=== PATIENT | male | born 1980 | race African-American/Black ===

== ENCOUNTER 2023-08-22 14:28 | Outpatient (REF) | payer OTHER, SELFPAY ==
[2023-08-22 18:03] LABS: MANUAL DIFF FLAG NO
[2023-08-22 18:08] LABS: Basophils Percent Auto 0.4 % (0-2); Eosinophils Absolute Auto 0.1 X10*3/uL (0.0-0.4); Eosinophils Percent Auto 2.4 % (0-4); Hematocrit 38.7 % (42.0-52.0); Imm Gran Abs Auto 0.02 X10*3/uL (0.00-0.03); Imm Gran Pct Auto 0.4 % (0.0-0.4); Lymphocytes Percent Auto 42.9 % (20-40); Mean Corpuscular HGB Conc 33.6 g/dl (31.0-36.0); Mean Corpuscular Hemoglobin 29.5 pg (27.0-33.0); Mean Corpuscular Volume 87.8 fL (80.0-98.0); Mean Platelet Volume 10.9 fL (9.4-12.4); Monocytes Absolute Auto 0.5 X10*3/uL (0.1-1.2); Monocytes Percent Auto 11.2 % (2-11); Neutrophils Percent Auto 42.7 % (45-73); Platelet Count 286 X10*3/uL (160-400); Red Blood Count 4.41 X10*6/uL (4.60-5.80); Red Cell Distribution Width 12.5 % (11.0-16.0); White Blood Count 4.6 X10*3/uL (4.8-10.8)
[2023-08-22 18:20] LABS: Creatinine Urine 211.78 mg/dL; Microalbum/Creatinine Ratio Ur 5.1 ug/mg cr (<30)
[2023-08-22 18:23] LABS: Alanine Aminotransferase 31 U/L (0-40); Alkaline Phosphatase 93 U/L (39-117); Anion Gap 13 (12-20); Aspartate Amino Transferase 29 U/L (5-37); Bilirubin Total 0.3 mg/dL (0.0-1.0); Blood Urea Nitrogen 19 mg/dL (9-16); Calcium 9.1 mg/dL (8.4-10.2); Carbon Dioxide 28 mmol/L (22-29); Chloride 100 mmol/L (96-108); Cholesterol 194 mg/dL (<200); Estimated Glomerular Filt Rate > 60; Glucose Random 139 mg/dL (60-115); HDL Cholesterol 42 mg/dL (>40); LDL Cholesterol Calculated 138 mg/dL (<100); Potassium 3.6 mmol/L (3.3-5.1); Sodium 137 mmol/L (135-145); Total Protein 7.5 g/dL (6.5-8.0); Triglycerides 71 mg/dL (<150)
[2023-08-22 18:40] LABS: TSH reflex Free T4 6.93 uIU/mL (0.32-4.0)
[2023-08-22 19:22] LABS: Free T4 (Free Thyroxine) 0.85 ng/dL (0.71-1.85)
== END 2023-08-22 14:29 | disposition home or self-care (01) ==
LOC: HO.CHCLDS 14:28
PROVIDERS: Visit Provider Internal Medicine
DX: E11.9 Type 2 diabetes mellitus without complications (principal)
CPT/HCPCS: 36415; 80053; 80061; 82043; 82570; 84439; 84443; 85025

== ENCOUNTER 2024-04-16 10:17 | Outpatient (REF) | payer OTHER, SELFPAY ==
[2024-04-16 14:29] LABS: MANUAL DIFF FLAG NO
[2024-04-16 14:36] LABS: Basophils Percent Auto 0.5 % (0-2); Hematocrit 41.9 % (42.0-52.0); Hemoglobin 14.2 g/dl (14.0-18.0); Imm Gran Abs Auto 0.01 X10*3/uL (0.00-0.03); Imm Gran Pct Auto 0.3 % (0.0-0.4); Lymphocytes Absolute Auto 1.7 X10*3/uL (1.2-4.9); Lymphocytes Percent Auto 42.8 % (20-40); Mean Corpuscular HGB Conc 33.9 g/dl (31.0-36.0); Mean Corpuscular Hemoglobin 28.5 pg (27.0-33.0); Mean Platelet Volume 11.7 fL (9.4-12.4); Monocytes Absolute Auto 0.4 X10*3/uL (0.1-1.2); Neutrophils Absolute Auto 1.8 x10*3/uL (2.0-8.3); Neutrophils Percent Auto 46.4 % (45-73); Platelet Count 303 X10*3/uL (160-400); Red Blood Count 4.99 X10*6/uL (4.60-5.80); Red Cell Distribution Width 12.7 % (11.0-16.0); White Blood Count 3.9 X10*3/uL (4.8-10.8)
[2024-04-16 14:57] LABS: Alanine Aminotransferase 25 U/L (0-40); Albumin Level 4.3 g/dL (3.5-5.0); Alkaline Phosphatase 143 U/L (39-117); Anion Gap 14 (12-20); Aspartate Amino Transferase 14 U/L (5-37); Bilirubin Total 0.3 mg/dL (0.0-1.0); Blood Urea Nitrogen 14 mg/dL (9-16); Calcium 9.9 mg/dL (8.4-10.2); Carbon Dioxide 27 mmol/L (22-29); Chloride 101 mmol/L (96-108); Cholesterol 217 mg/dL (<200); Estimated Glomerular Filt Rate > 60; Glucose Random 340 mg/dL (60-115); HDL Cholesterol 35 mg/dL (>40); LDL Cholesterol Calculated 155 mg/dL (<100); Sodium 138 mmol/L (135-145); Total Protein 7.9 g/dL (6.5-8.0); Triglycerides 139 mg/dL (<150)
[2024-04-16 15:08] LABS: Creatinine Urine 220.13 mg/dL; Microalbum/Creatinine Ratio Ur 37.7 ug/mg cr (<30)
[2024-04-16 15:12] LABS: TSH reflex Free T4 3.85 uIU/mL (0.32-4.0)
== END 2024-04-16 10:18 | disposition home or self-care (01) ==
LOC: HO.CHCLDS 10:17
PROVIDERS: Visit Provider Internal Medicine
DX: E11.65 Type 2 diabetes mellitus with hyperglycemia (principal)
CPT/HCPCS: 36415; 80053; 80061; 82043; 82570; 84443; 85025

== ENCOUNTER 2024-12-11 09:03 | Outpatient (REF) | payer MEDICAID, SELFPAY ==
--- OUTSIDE RECORDS SUMMARY | 2024-12-11 09:44 | XMS_ITS | Encounter Summary ---
Author Organization [employer] Address [address] [place] [address] [address] [address] Care Team Providers Care Diesel Tractor Engine Mechanic Name Role Phone Rehan Chandler MD Primary Care Prov ider Chayito Santo PharmD Unavailable Encounter Details Date Type Department Care Team (Late st Contact Info) Description 03/26/2023 Orders Only [facility] CHC MED & PEDS [address] [place] [address] Romana Urbano MD [address] [place] [address] Social History Tobacco Use Types Packs/Day Years Used Date Smoking Tobacco: Never Assessed Sex and Gender Information Value Date Recorded Sex Assigned at Male 07/09/2022 10:21 AM EDT Legal Sex Male 10:21 AM EDT Gender Identity Male 07/09/2022 10:21 AM EDT Sexual Orientation Straight 07/09/2022 10 :21 AM EDT documented as of this encounter Plan of Treatment Upcoming Encounters Date Type Department Care Team (Late st Contact Info) Description 12/14/2024 9:00 AM EDT Office Visit [facility] OPTOMETRY [address] [place], [place] [id number] Alia Johnson, OD [address] [place] [address] 01/05/2025 8:30 AM EDT Telemedicine [facility] CHC MED & PEDS [address] [place] [address] Rehan Chandler MD [address] [place] [address] 02/15/2025 9:00 AM EDT Medication Management [facility] MED & PEDS [address] [place] [address] Chayito Santo PharmD [address] [place] [address] documented as of this encounter Visit Diagnoses Not on filedocumented in this encounter Care Teams Diesel Tractor Engine Mechanic Relationship Specialty Start Date End Date Rehan Chandler MD [address] [place] [address] PCP - General Internal Medicine 02/02/20 Chayito Santo, PharmD [address] [place] [address] Pharmacist Internal Medicine 11/04/24 documented as of this encounter
--- OUTSIDE RECORDS SUMMARY | 2024-12-11 09:44 | XMS_ITS | Encounter Summary ---
Author Organization [employer] Address [address] [place] [id number] Care Team Providers Care Bulb Planter Name Role Phone Rehan Chandler MD Primary Care Prov ider Chayito Santo PharmD Unavailable [phone] Reason for Visit * Reason Onset Date Comments Referral 03/24/2024 Encounter Details Date Type Department Care Team ([facility] st Contact Info) Description 03/24/2024 Telephone [facility] CHC MED & PEDS [address] [place] [address] Rehan Chandler MD [address] [place] [address] Referral Social History Tobacco Use Types Packs/Day Years Used Date Smoking Tobacco: Never Smokeless Tobacco: Never Alcohol Use Standard Drinks/Week Comments Not Currently 0 (1 standard drink = 0.6 oz pur e alcohol) Depression Answer Date Recorded Patient Health Questionnaire-9 Score 0 01/27/2024 Patient Health Questionnaire-9 Score 0 01/27/2024 Last PHQ-9: Questionnaire Data Not on file 0 01/27/2024 Housing Stability Answer Date Recorded What is your housing situation today? I do not have housing (Staying with others, in a hotel, in a senior care, living outside on the street, on a beach, in a car, or in a park 07/24/[address] you li ve. Do you have problems with any of the following? None of the above 07/24/2023 Food Insecurity Answer Date Recorded Within the past 12 months, y ou worried that your food would run out before you got money to buy more: Never True 07/24/2023 Within the past 12 months,th e food you bought just didn't last and you didn't have enough money to get more: Never True Transportation Answer Date Recorded In the past 12 months, has l ack of transportation kept you from medical appts, meetings, work or from getting things needed for daily living? No 07/24/2023 Utilities Answer Date Recorded In the past 12 months, has t he electric, gas, oil or water company threatened to shut off services in your home? Yes 07/24/2023 Depression Answer Date Recorded Patient Health Questionnaire-2 Score 0 01/27/2024 Sex and Gender Information Value Date Recorded Sex Assigned at Male 07/09/2022 10:21 AM EDT Legal Sex Male 10:21 AM EDT Gender Identity Male 07/09/2022 10:21 AM EDT Sexual Orientation Straight 07/09/2022 10 :21 AM EDT documented as of this encounter Miscellaneous Notes * Telephone Encounter - Daniella Caban - 03/24/2024 1:29 PM EDT Tc from pt requesting to get a podiatry referral. documented in this encounter Plan of Treatment Upcoming Encounters Date Type Department Care Team (Late st Contact Info) Description 12/14/2024 9:00 AM EDT Office Visit [facility] OPTOMETRY [address] [place] [address] Alia Johnson, OD [address] [facility] [place] [address] 01/05/2025 8:30 AM EDT Telemedicine [facility] CHC MED & PEDS [address] [place] [address] Rehan Chandler MD [address] [place] [address] 02/15/2025 9:00 AM EDT Medication Management [facility] MED & PEDS [address] [place] [address] Chayito Santo, CherylD [address] [place] [address] documented as of this encounter Visit Diagnoses Not on filedocumented in this encounter Additional Health Concerns Assessment Noted Time PHQ-9 Depression Total Score: 0 01/27/20 24 1:22 PM EDT documented as of this encounter Care Teams Bulb Planter Relationship Specialty Start Date End Date Rehan Chandler MD [address] [place] [address] PCP - General Internal Medicine 02/02/20 Chayito Santo, Dago [address] [place] [address] Pharmacist Internal Medicine 11/04/24 documented as of this encounter
--- OUTSIDE RECORDS SUMMARY | 2024-12-11 09:44 | XMS_ITS | Encounter Summary ---
Author Organization [email or web address] Address [address] [facility] [address] [place] [address] Care Team Providers Care Top Screw Name Role Phone Rehan Chandler MD Primary Care Prov ider Chayito Santo PharmD Unavailable [phone] Encounter Details Date Type Department Care Team (Latest Contact Info) Description 12/09/2024 Travel Social History Tobacco Use Types Packs/Day Years Used Date Smoking Tobacco: Never Smokeless Tobacco: Never Alcohol Use Standard Drinks/Week Comments Not Currently 0 (1 standard drink = 0.6 oz pur e alcohol) Depression Answer Date Recorded Patient Health Questionnaire-9 Score 0 11/26/2024 Patient Health Questionnaire-9 Score 0 11/26/2024 Last PHQ-9: Questionnaire Data Not on file 0 11/26/2024 Housing Stability Answer Date Recorded What is your housing situation today? I have kiera cole 05/15/[address] you li ve. Do you have problems with any of the following? None of the above 05/15/2024 Food Insecurity Answer Date Recorded Within the [...] t he electric, gas, oil or water [employer] threatened to shut off services in your home? No 05/15/2024 Depression Answer Date Recorded Patient Health Questionnaire-2 Score 0 11/26/2024 Internet Access Answer Date Recorded Internet Access Q1 Yes 05/15/2024 Internet Access Q2 Not on file 05/15/2024 Sex and Gender Information Value Date Recorded Sex Assigned at Male 07/09/2022 10:21 AM EDT Legal Sex Male 10:21 AM EDT Gender Identity Male 07/09/2022 10:21 AM EDT Sexual Orientation Straight 07/09/2022 10 :21 AM EDT documented as of this encounter Plan of Treatment Upcoming Encounters Date Type Department Care Team (Late st Contact Info) Description 12/14/2024 9:00 AM EDT Office Visit [facility] OPTOMETRY [address] [place] [address] AlexKarlosn, OD [address] [place] [address] 01/05/2025 8:30 AM EDT Telemedicine [facility] MED & PEDS [address] [place] [address] Rehan Chandler MD [address] [place] [address] 02/15/2025 9:00 AM EDT Medication Management [facility] MED & PEDS [address] [place] [address] Chayito Santo PharmD [address] [place] [address] documented as of this encounter Visit Diagnoses Not on filedocumented in this encounter Additional Health Concerns Assessment Noted Time PHQ-9 Depression Total Score: 0 11/27/19 25 8:58 AM EDT documented as of this encounter Care Teams Top Screw Relationship Specialty Start Date End Date Rehan Chandler MD [address] [place] [address] PCP - General Internal Medicine 02/02/20 Chayito Santo, PharmD [address] [place] [address] Pharmacist Internal Medicine 11/04/24 documented as of this encounter
--- OUTSIDE RECORDS SUMMARY | 2024-12-11 09:44 | XMS_ITS | Encounter Summary ---
Author Organization [employer] Address [address] [facility] [address] [place] [address] Care Team Providers Care Pigment Supplier Name Role Phone Rehan Chandler MD Primary Care Prov ider Chayito Santo PharmD Unavailable [phone] Encounter Details Date Type Department Care Team ([facility] Contact Info) Description 10/30/2023 Orders Only [facility] CHC MED & PEDS [address] [place], [place] [phone] Rehan Chandler MD [address] [place] [address] Social History Tobacco Use Types Packs/Day Years Used Date Smoking Tobacco: Never Smokeless Tobacco: Never Alcohol Use Standard Drinks/Week Comments Not Currently 0 (1 standard drink = 0.6 oz pur e alcohol) Housing Stability Answer Date Recorded What is your housing situation today? I do not have housing (Staying with others, in a hotel, in a [place] [facility] [place], living outside on the street, on a [...] off services in your home? Yes 07/24/2023 Sex and Gender Information Value Date Recorded Sex Assigned at Male 07/09/2022 10:21 AM EDT Legal Sex Male 10:21 AM EDT Gender Identity Male 07/09/2022 10:21 AM EDT Sexual Orientation Straight 07/09/2022 10 :21 AM EDT documented as of this encounter Plan of Treatment Upcoming Encounters Date Type Department Care Team (Late st Contact Info) Description 12/14/2024 9:00 AM EDT Office Visit [facility] OPTOMETRY [address] [place] [address] Alex, Alia, OD [address] [place] [address] 01/05/2025 8:30 AM EDT Telemedicine [facility] MED & PEDS [address] [place] [address] Rehan Chandler MD [address] [place] [address] 02/15/2025 9:00 AM EDT Medication Management [facility] MED & PEDS [address] [place] [address] Chayito Santo PharmD [address] [place] [address] documented as of this encounter Visit Diagnoses Not on filedocumented in this encounter Care Teams Pigment Supplier Relationship Specialty Start Date End Date Rehna Chandler MD [address] [place] [address] PCP - General Internal Medicine 02/02/20 Chayito Santo PharmD [address] [place] [address] Pharmacist Internal Medicine 11/04/24 documented as of this encounter
--- OUTSIDE RECORDS SUMMARY | 2024-12-11 09:44 | XMS_ITS | Encounter Summary ---
Author Organization [employer] Address [address] [place] [address] [address] [address] Care Team Providers Care Help Desk Representative Name Role Phone Rehan Chandler MD Primary Care Prov ider Chayito Santo PharmD Unavailable [phone] Encounter Details Date Type Department Care Team (Latest Contact Info) Description 11/04/2018 Abstract [facility] CONVERSIONS Dental, Provider, DDS Social History Tobacco Use Types Packs/Day Years [...] Upcoming Encounters Date Type Department Care Team ( st Contact Info) Description 12/14/2024 9:00 AM EDT Office Visit [facility] OPTOMETRY [address] [place] [address] Alia Johnson, OD [address] [place] [address] 01/05/2025 8:30 AM EDT Telemedicine [facility] MED & PEDS [address] [place] [address] Rehan Chandler MD [address] [place] [address] 02/15/2025 9:00 AM EDT Medication Management [facility] MED & PEDS [address] [place] [address] Chayito Santo PharmD [address] [place] [address] documented as of this encounter Visit Diagnoses Not on filedocumented in this encounter Care Teams Help Desk Representative Relationship Specialty Start Date End Date Rehan Chandler MD [address] [place] [address] PCP - General Internal Medicine 02/02/20 Chayito Santo PharmD [address] [place] [address] Pharmacist Internal Medicine 11/04/24 documented as of this encounter
--- OUTSIDE RECORDS SUMMARY | 2024-12-11 09:44 | XMS_ITS | Clinical Summary ---
Author Organization [employer] Address [address] [facility] 7[address] [place] [address] Care Team Providers Care Fence Post Cutter Name Role Phone Rehan Chandler MD Primary Care Prov ider Chayito Santo PharmD Unavailable [phone] Allergies Active Allergy Reactions Criticality Noted Date Comments Penicillins Unknown 2017 Medications Blood Glucose Monitoring Suppl (FreeStyle Jber) kit 1 kit 3 times daily. 1 kit 3 Active FreeStyle lancets 1 each by Other route 3 times daily. 100 each 12 4 04/16/20 25 Active FREESTYLE LITE test strip Take [address] it on strip for glucose monitoring 100 each 4 04/16/20 25 Active atorvastatin (Lipitor) 20 MG tablet Take 1 tablet (20 mg) by mouth Once per day. 30 tablet 11 4 08/21/20 25 Active empagliflozin (Jardiance) 25 MG Take 1 tablet (25 mg) by mouth Once per day. 90 tablet 3 5 10/23/19 26 Active glipiZIDE (Glucotrol) 10 MG tablet Take 1 tablet (10 mg) by mouth before breakfast and before evening meal. 180 tablet 3 5 Active hydroCHLOROthi azide (HYDRODiuril) 25 MG tablet Take 1 tablet (25 mg) by mouth Once per day. 90 tablet 3 5 Active lisinopril 40 MG tablet Take 1 tablet (40 mg) by mouth Once per day. 90 tablet 3 5 Active NIFEdipine XL (Procardia XL) 30 MG 24 hr tablet Take 1 tablet (30 mg) by mouth Once per day. Do not crush, chew, or split. 90 tablet 3 5 Active Dulaglutide (Trulicity) 1.5 MG/0.5ML solution auto-injector Inject 1.5 mg under the skin 1 (one) time per week. 3 mL 3 5 Active Dulaglutide (Trulicity) 0.75 MG/0.5ML solution auto-injector Inject 0.75 mg under the skin 1 (one) time per week. 2 mL 1 5 11/27/19 25 Discontinu ed(Ineffec tive) Active Problems Problem Noted Date Diagnosed Date DM type 2 with diabetic mixed hyperlipidemia (CM S/HCC) 05/20/2024 Assessment & Plan (09/21/2024 7:39 PM EST): On atorvastatin, new labs will be ordered Assessment & Plan (05/20/2024 2:44 PM EDT): Will start on atorvastatin, risk vs benefits discussed, follow up in 3-4 months Diabetes mellitus without complication Assessment & Plan (08/21/2024 2:27 PM EST): Patient has not started diabetes treatment, discussed risk vs benefits, will send medications again, will follow up in 1 month Assessment & Plan (07/27/2024 9:40 AM EST): Again patient has not picked up medications, he is only taking glipizide and is not monitoring his glucose results, refers he will pick them up today, will follow up in 1 month in office Assessment & Plan (06/19/2024 9:39 AM EDT): Patient only taking glipizide, not monitoring his glucose, not taking jardiance and has not picked up wegovy, reinforced importance of medication adherance, will follow up in 1 month Assessment & Plan (08/22/2023 2:58 PM EST): He stopped taking dm medications, will renew glipizide, target <7.0%, decrease carb/sugar. Follow up in 1 month Will refer to podiatry and optometry Diabetes mellitus with hyperglycemia 03/26/2023 Assessment & Plan (11/26/2024 9:03 AM EDT): Improving, decreased from 14->13, started trulicity a month ago, will increase dose to 1.5mg, continue glipizide and jardiance, follow up in 1 month Assessment & Plan (10/23/2024 10:19 AM EST): Wegovy not approved, will order trulicity, continue jardiance and glipizide, watch for hypoglycemia, will refer to pharmacy CDTM Assessment & Plan (09/21/2024 7:38 PM EST): Uncontrolled, he is taking glipizide and jardiance, will increase glipizide, he will pick GLP1 today Assessment & Plan (05/20/2024 2:42 PM EDT): Patient has not picked up his medications, risk were discussed, will follow up in 1 month Obesity 03/19/2023 Hypertension 03/19/2023 Assessment & Plan (11/26/2024 9:02 AM EDT): Controlled, reinforced low sodium diet, exercise as tolerated, no changes will be made, keep bp log, follow up in 3 months Assessment & Plan (10/23/2024 10:18 AM EST): Not at target, will add nifedipine, continue with hydrochlorothiazide and lisinopril, encouraged to keep low sodium diet and exercise as tolerated, keep bp log, follow up in 1 month Assessment & Plan (09/21/2024 7:37 PM EST): Not at target, will add hydrochlorothiazide, continue lisinopril, keep low sodium diet, bp log, follow up in 1 month Assessment & Plan (08/21/2024 2:26 PM EST): Uncontrolled, will increase lisinopril to 40mg, continue low sodium diet and exercise as tolerated, keep bp log, follow up in 1 month Assessment & Plan (07/27/2024 9:39 AM EST): Patient not monitoring his blood pressure, is taking lisinopril, discussed importance of blood pressure monitoring and staying below target 130/80 to decrease co morbilities associated, will follow up in office in 4 weeks Assessment & Plan (06/19/2024 9:38 AM EDT): Patient taking lisinopril 20mg, but not monitoring his blood pressure, discussed importance of appropriate blood pressure control, will follow up in 1 month Assessment & Plan (05/20/2024 2:41 PM EDT): Uncontrolled, he has not been taking his medications, he will pick them up today at the pharmacy, discussed importance of treatment adherence Assessment & Plan (04/16/2024 10:17 AM EDT): Not taking medication, restart treatment Risk were discussed Maintain a low-sodium diet (less than 2 grams per day). Maintain a regular cardiovascular exercise program. Advised to maintain a low-fat, low-cholesterol diet. Counseled regarding importance of weight loss. Counseled re: potential co-morbidities including cardiovascular disease. Assessment & Plan (08/22/2023 2:56 PM EST): Patient was not taking his bp med control, will renew it, and will follow up in 1 month Encounters Date Type Department Care Team Description 12/09/2024 Travel 12/07/2024 Travel 12/02/2024 Travel 11/26/2024 8:45 AM EDT Office Visit [facility] [address] [place] [address] Rehan Chandler MD Primary hypertension (Primary Dx); Type 2 diabetes mellitus with hyperglycemia, without long-term current use of insulin ([facility]) 11/26/2024 Travel 11/20/2024 Population Health Risk Score [facility] (C3) Department [address] [phone] Provider, Population Health Generic 11/19/2024 Patient Outreach [facility] [address] [place] [address] Rehan Chandler MD Pre-visit Planning (SDOH negative, Tobacco screening negative. ) 11/19/2024 Travel 11/04/2024 Travel 10/29/2024 Travel 10/23/2024 9:30 AM EST Office Visit [facility] [address] [place] [address] Rehan Chandler MD Chronic right shoulder pain (Primary Dx); Type 2 diabetes mellitus with hyperglycemia, without long-term current use of insulin (CMS/HCC); Primary hypertension 10/23/2024 Travel 10/20/2024 Travel 10/09/2024 Telephone [facility] [address] [place] [address] Chayito Santo, PharmSharon 09/22/2024 Travel 09/21/2024 8:45 AM EST Office Visit [facility] [address] [place] [address] Rehan Chandler MD Primary hypertension (Primary Dx); Type 2 diabetes mellitus with hyperglycemia, without long-term current use of insulin (CMS/HCC); Diabetes mellitus without complication (CMS/HCC); DM type 2 with diabetic mixed hyperlipidemia (CMS/HCC) (CMS/HCC) 09/21/2024 Travel 09/14/2024 Travel from Last 3 Months Immunizations Name Administration Dates Next Due Tdap 12/26/2017 Social History Tobacco Use Types Packs/Day Years Used Date Smoking Tobacco: Never Smokeless Tobacco: Never Tobacco Cessation:Counseling Given: Not Answered Alcohol Use Standard Drinks/Week Comments Not Currently [...] Orientation Straight 07/09/2022 10 :21 AM EDT Last Filed Vital Signs Vital Sign Reading Time Taken Comments Blood Pressure 152/90 12/09/2024 10:03 AM EDT Pulse 100 11/26/2024 8:44 AM EDT Temperature 36.6 ??C (97.9 ??F) 11/26/2024 8:44 AM ED T Respiratory Rate 16 11/26/2024 8:44 AM EDT Oxygen Saturation 98% 11/26/2024 8:44 AM EDT Inhaled Oxygen Concentration - - Weight 146 kg (322 lb) 11/26/2024 8:44 AM EDT Height 180.3 cm (5' 11 ) 11/26/2024 8:44 AM EDT Body Mass Index 44.91 11/26/2024 8:44 AM EDT Plan of Treatment Upcoming Encounters Date Type Department Care Team (Late st Contact Info) Description 12/14/2024 9:00 AM EDT Office Visit [facility] [address] [place] [address] [phone] Alia Johnson, OD [address] [place] [address] 01/05/2025 8:30 AM EDT Telemedicine [facility] [address] [place] [address] Rehan Chandler MD [address] [place] [address] 02/15/2025 9:00 AM EDT Medication Management [facility] [address] [place] [address] Chayito Santo, PharmD [address] [place] [address] Health Maintenance Due Date Last Done Comments Family Planning (PISQ) 11/16/1995 Hepatitis B Vaccines (1 of 3 - 19+ 3-dose series) 11/16/1999 Pneumococcal Vaccine: Pediatrics (0 to 5 Years) and At-Risk Patients (6 to 49) Years) (1 of 2 - PCV) 11/16/1999 COVID-19 Vaccine ( - 2023- season) 2024 Influenza Vaccine (#1) 2024 Diabetes: Hemoglobin A1C 02/26/2025 025, 08/21/2024, 04/16/2024, Additional history exists Diabetes: Foot Exam 04/16/2025 04/16/2024, 04/16/2024, 04/16/2024, Additional history exists Diabetes: Urine Protein Screening 04/16/2025 04/16/2024, 08/22/2023, 06/28/2022, Additional history exists Lipid Panel 04/16/2025 04/16/2024, 08/09, 06/28/2022, Additional history exists Tobacco Screening 08/24/2025 08/24/2024 SDOH Screening 11/19/2025 11/19/2024 Alcohol/Substance Use Screening 11/26/2025 11/26/2024 Depression Screening 11/26/2025 11/26/2024, 03/20/20 25 Eye Exam 08/24/2026 08/24/2024, 08/09, 08/24/2024, Additional history exists DTaP/Tdap/Td Vaccines (2 - Td or Tdap) 12/27/2027 12/26/2017 Zoster Vaccines (1 of 2) 2030 RSV Patients and Patients Aged 60 years or older (1 - 1-dose 75+ series) 11/16/2055 HIV Screening Completed 09/22/2020 Hepatitis C Screening Completed 06/28/2022 HIB Vaccines Aged Out No longer eligi ble based on patient's age to complete this topic HPV Vaccines Aged Out No longer eligi ble based on patient's age to complete this topic Hepatitis A Vaccines Aged Out No long er eligible based on patient's age to complete this topic IPV Vaccines Aged Out No longer eligi ble based on patient's age to complete this topic Meningococcal Vaccine Aged Out No luis justino eligible based on patient's age to complete this topic RSV under 20 months Aged Out No longe r eligible based on patient's age to complete this topic Rotavirus Vaccines Aged Out No longer eligible based on patient's age to complete this topic Procedures Procedure Name Priority Date/Time Associated Diagnosis Comments POCT GLYCATED HEMOGLOBIN, TOTAL Routine 11/26/2024 8:47 AM EDT Type 2 diabetes mellitus with hyperglycemia, without long-term current use of insulin ([facility]) POCT GLUCOSE Routine 11/26/2024 8:46 AM EDT Type 2 diabetes mellitus with hyperglycemia, without long-term current use of insulin (CMS/[facility]) POCT GLUCOSE Routine 09/21/2024 9:10 AM EST Type 2 diabetes mellitus with hyperglycemia, without long-term current use of insulin (CMS/HCC) LIPID PANEL, STANDARD Routine 04/16/2024 10:19 AM EDT Type 2 diabetes mellitus with hyperglycemia, without long-term current use of insulin (CMS/HCC) ALBUMIN, RANDOM URINE W/CREATININE Routine 04/16/2024 10:15 AM EDT Type 2 diabetes mellitus with hyperglycemia, without long-term current use of insulin (CMS/HCC) ZZZ HISTORICAL HEPATITIS C AB W/REFL TO HCV RNA, QN, PCR Routine 06/28/2022 10:27 AM EDT HIV 1/2 ANTIGEN/ANTIBODY, FOURTH GENERATION W/RFL Routine 09/22/2020 9:18 AM EST from Last 3 Months or Most Recently Relevant to Health Maintenance Results * (ABNORMAL) POCT A1C (11/26/2024 8:47 AM EDT) Hemoglobin A1C 13.0(A) 4.0 - 6.0 % QC Media Lot # Comment:[id number] Lot# Expiration Date Comment:07/13/2026 Blood 11/26/2024 8:47 AM EDT Rehan Ribeiro MD POINT OF CARE TEST ENTER/EDIT ORDERABLES Final Result * (ABNORMAL) POCT glucose manually resulted (11/26/2024 8:46 AM EDT) Only the most recent of2 resultswithin the time period is included. Glucose Blood, POC 160 60 - 200 mg/dL QC Media Lot # Comment:[id number] Lot# Expiration Date Comment:03/11/2025 Blood Capillary blood specimen / Unknown 11/26/2024 8:46 AM EDT Rehan Ribeiro MD POINT OF CARE TEST ENTER/EDIT ORDERABLES Final Result * (ABNORMAL) Lipid Panel, Standard (04/16/2024 10:19 AM EDT) Triglycerides 139 <150 mg/dL [facility] Comment:Desirable Triglyceri de: less than 150 mg/dLBorderline High Triglyceride 150-199 mg/dLHigh Triglyceride: 200-499 mg/dLVery High Triglyceride: greater than or equal to 5OO mg/dL Cholesterol 217(H) <200 mg/dL [facility] Comment:Desirable Cholestero l: less than 200 mg/dLBorderline High Cholesterol: 200-239 mg/dLHigh Cholesterol: greater than 239 mg/dL LDL Cholesterol Calculated 155(H) <100 mg/dL [facility] Comment:Desirable LDL: less than 100 mg/dLNear Optimal/Above Optimal LDL: 110- 129 mg/dLBorderline High LDL: 130-159 mg/dLHigh LDL: 160-189 mg/dLVery High LDL: greater than or equal to 190 mg/dL HDL Cholesterol 35(L) >40 mg/dL [facility] Comment:Desirable HDL: great er than 40 mg/dL Note: This HDL assay may give artificially low results in patients with liver disease. Blood Venous blood specimen / Unknown 04/16/2024 10:19 AM EDT 04/16/2024 2:24 PM EDT us Rehan Ribeiro MD LAB BLOOD ORDERABL ES Final Result Performing Organization Address [facility]/ZIP Co de Phone Number [facility] [address] [place] [phone] * (ABNORMAL) Albumin, Random Urine W/Creatinine (04/16/2024 10:15 AM EDT) Creatinine, Urine 220.13 mg/dL [facility] Microalbumin Urine 83.0 mg/L [facility] Microalbum Creatinine Ratio Ur 37.7(H) <30 ug/mg cr [facility] Comment:Albumin/Creatinine R atio Reference Ranges: Normal: < 30 ug/mg creatinine Microalbuminuria: 30 - 300 ug/mg creatinineClinical Albuminuria: > 300 ug/mg creatinine Urine (Urine, Random) 04/16/2024 10:15 AM EDT 04/16/2024 2:32 PM EDT Rehan Ribeiro MD LAB URINE ORDERABL ES Final Result Performing Organization Address [facility]/ZIP Co de Phone Number [facility] [address] [place] [address] [phone] * HEPATITIS C AB W/REFL TO HCV RNA, QN, PCR (06/28/2022 10:27 AM EDT) HEPATITIS C ANTIBODY NON-REACTI VE NON-REACT [facility] INDEX 0.12 <1.00 [facility] Comment: ?? HCV antibody was non-reactive. There is no laboratory ?? evidence of HCV infection. ?? In most cases, no further action is required. However, if recent HCV exposure is suspected, a test for HCV RNA (test code 25433) is suggested. ?? For additional information please refer to http://[employer]/faq/CDD30t6 (This link is being provided for informational/ educational purposes only.) ?? 06/28/2022 10:2 7 AM EDT Rehan Ribeiro MD HISTORICAL/NON ORD ERABLE LABS Final Result [facility]VERT[facility]GAC[facility] * HIV 1/2 ANTIGEN/ANTIBODY,FOURTH GENERATION W/RFL (09/22/2020 9:18 AM EST) HIV-1/2 ANTIGEN AND ANTIBODIES, 4TH GENERATION W/ REFLEX NON-REACT [facility] NON-REACT [facility] Comment: HIV-1 antigen and HIV-1/HIV-2 antibodies were not detected. There is no laboratory evidence of HIV infection. ?? PLEASE NOTE: This information has been disclosed to you from records whose confidentiality may be protected by state law. ??If your state requires such protection, then the state law prohibits you from making any further disclosure of the information without the specific written consent of the person to whom it pertains, or as otherwise permitted by law. A general authorization for the release of medical or other information is NOT sufficient for this purpose. ? For additional information please refer to http://[employer] Fusion/faq/MMC693 (This link is being provided for informational/ educational purposes only.) ? The performance of this assay has not been clinically validated in patients less than 2 years old. ?? 09/22/2020 9:18 AM EST Rehan Ribeiro MD LAB BLOOD ORDERABL ES Final Result [facility] [address] from Last 3 Months or Most Recently Relevant to Health Maintenance Insurance Care Teams Fence Post Cutter Relationship Specialty Start Date End Date Rehan Chandler MD [address] [place] [address] PCP - General Internal Medicine 02/02/20 Chayito Santo PharmD [address] [place] [address] Pharmacist Internal Medicine 11/04/24
--- OUTSIDE RECORDS SUMMARY | 2024-12-11 09:44 | XMS_ITS | Encounter Summary ---
Author Organization [employer] Address [address] [facility] [address] [place] [address] Care Team Providers Care Paper Coating Supervisor Name Role Phone Rehan Chandler MD Primary Care Prov ider Chayito Santo PharmD Unavailable [phone] Encounter Details Date Type Department Care Team (Latest Contact Info) Description 12/07/2024 Travel Social History Tobacco Use Types Packs/Day [...] t he electric, gas, oil or water ditlo threatened to shut off services in your [...] Description 12/14/2024 9:00 AM EDT Office Visit [facility] [address] [place] [address] AlexKarlosn, OD [address] [place] [address] 01/05/2025 8:30 AM EDT Telemedicine [facility] [address] [place] [address] Rehan Chandler MD [address] [place] [address] 02/15/2025 9:00 AM EDT Medication Management [facility] [address] [place] [address] Chayito Santo PharmD [address] [place] [address] documented as of this encounter Visit Diagnoses Not on filedocumented in this encounter Additional Health Concerns Assessment Noted Time PHQ-9 Depression Total Score: 0 11/27/19 25 8:58 AM EDT documented as of this encounter Care Teams Paper Coating Supervisor Relationship Specialty Start Date End Date Rehan Chandler MD [address] [place] [address] PCP - General Internal Medicine 02/02/20 Chayito Santo, PharmD [address] [place] [address] Pharmacist Internal Medicine 11/04/24 documented as of this encounter
[2024-12-11 14:50] LABS: Alanine Aminotransferase 35 U/L (0-40); Albumin Level 4.6 g/dL (3.5-5.0); Alkaline Phosphatase 104 U/L (39-117); Anion Gap 15 (12-20); Aspartate Amino Transferase 23 U/L (5-37); Bilirubin Total 0.4 mg/dL (0.0-1.0); Blood Urea Nitrogen 20 mg/dL (9-16); Calcium 9.4 mg/dL (8.4-10.2); Carbon Dioxide 25 mmol/L (22-29); Chloride 102 mmol/L (96-108); Cholesterol 170 mg/dL (<200); Estimated Glomerular Filt Rate > 60; Glucose Random 153 mg/dL (60-115); HDL Cholesterol 42 mg/dL (>40); LDL Cholesterol Calculated 118 mg/dL (<100); Potassium 3.8 mmol/L (3.3-5.1); Sodium 138 mmol/L (135-145); Total Protein 8.3 g/dL (6.5-8.0); Triglycerides 52 mg/dL (<150)
[2024-12-11 15:01] LABS: Creatinine Urine 75.31 mg/dL; Microalbum/Creatinine Ratio Ur 14.6 ug/mg cr (<30)
== END 2024-12-11 09:04 | disposition home or self-care (01) ==
LOC: HO.CHCLDS 09:03
PROVIDERS: Visit Provider Internal Medicine
DX: E11.65 Type 2 diabetes mellitus with hyperglycemia (principal)
CPT/HCPCS: 36415; 80053; 80061; 82043; 82570

== ENCOUNTER 2025-06-25 09:18 | Outpatient (REF) | payer MEDICAID, SELFPAY ==
[2025-06-25 14:41] LABS: MANUAL DIFF FLAG NO
[2025-06-25 14:52] LABS: Hematocrit 43.5 % (42.0-52.0); Hemoglobin 14.3 g/dl (14.0-18.0); Imm Gran Abs Auto 0.05 X10*3/uL (0.00-0.03); Imm Gran Pct Auto 0.9 % (0.0-0.4); Lymphocytes Absolute Auto 2.2 X10*3/uL (1.2-4.9); Mean Corpuscular HGB Conc 32.9 g/dl (31.0-36.0); Mean Corpuscular Hemoglobin 28.3 pg (27.0-33.0); Mean Corpuscular Volume 86.1 fL (80.0-98.0); NRBC Abs Auto 0.000 X10*3/uL (0.0-0.012); NRBC Pct Auto 0.0 /100WBC (0.0-0.2); Platelet Count 360 X10*3/uL (160-400); Red Blood Count 5.05 X10*6/uL (4.60-5.80); White Blood Count 5.4 X10*3/uL (4.8-10.8)
[2025-06-25 15:56] LABS: Alanine Aminotransferase 36 U/L (0-40); Albumin Level 4.7 g/dL (3.5-5.0); Anion Gap 16 (12-20); Aspartate Amino Transferase 32 U/L (5-37); Blood Urea Nitrogen 17 mg/dL (9-16); Calcium 9.6 mg/dL (8.4-10.2); Carbon Dioxide 26 mmol/L (22-29); Chloride 100 mmol/L (96-108); Cholesterol 142 mg/dL (<200); Estimated Glomerular Filt Rate > 60; HDL Cholesterol 33 mg/dL (>40); Potassium 4.0 mmol/L (3.3-5.1); Sodium 138 mmol/L (135-145); Total Protein 8.2 g/dL (6.5-8.0); Triglycerides 107 mg/dL (<150)
[2025-06-25 18:11] LABS: Alkaline Phosphatase 117 U/L (39-117)
[2025-06-25 18:29] LABS: Free T4 (Free Thyroxine) 1.01 ng/dL (0.71-1.85)
== END 2025-06-25 09:19 | disposition home or self-care (01) ==
LOC: HO.CHCLDS 09:18
PROVIDERS: Visit Provider Internal Medicine
DX: E11.9 Type 2 diabetes mellitus without complications (principal)
CPT/HCPCS: 36415; 80053; 80061; 84439; 84443; 85025